=== PATIENT | female | born 1930 | race Caucasian/White ===

== ENCOUNTER 2017-06-18 22:03 | Inpatient (IN) | payer OTHER ==
[~2017-06-18] VITALS: Ht 177.8 cm; Wt 85.8 kg
[~2017-06-18 22:03] MED LIST: ALLOPURINOL100 PO; BACTRIM1 TAB PO; COR200 PO; COR6 PO; CORE25 PO; COU2 PO; COZ25 PO; COZ50 PO; CRANBERRY CAPS; CRANBERRY1 CAP PO; CRANBERRY1 POW; DIG125 PO; DIGOXIN0.125 MG PO; DYA PO; DYAZIDE; FOSAMAX70 MG PO; IMO2 PO; IMODIUM A-D2 M1 PO; L40 PO; L40I PO; LAC PO; LASIX40 MG PO; LOPERAMIDE2 MG PO; MOTRIN800 MG PO; NORVASC2.5 MG PO; OMEPRAZOLE40 M1 PO; PRO RENAL PO; PROZ20 PO; ROC1I IV; ROC25 PO; SYN88 PO; TRA50 PO; TRAZODONE50 M1 PO; TRAZODONE50 MG PO; TRE400 PO; TYLENOL ES; TYLENOL ES500 MG PO; VITAMIN B12 1541 TAB PO; VITB12I; XARELTO PO; ZOC20 PO; ZYL300 PO; [UNRECOGNIZED DRUG - OTHER]; [UNRECOGNIZED DRUG - OTHER] PO; [UNRECOGNIZED DRUG - OTHER] PO; [UNRECOGNIZED DRUG - OTHER] PO; levofloxacin PO
[2017-06-18 22:43] LABS: PLATELET COUNT 279 x10^3mcL (130-400); RED CELL DISTRIBUTION WIDTH 15.4 % (11.5-14.5)
[2017-06-18 22:49] LABS: CALCIUM 9.5 mg/dL (8.5-10.1); CARBON DIOXIDE 28.7 mmol/L (21-32); CHLORIDE SERUM 104 mmol/L (98-107); CREATININE SERUM 1.5 mg/dL (0.6-1.0); GLUCOSE SERUM 132 mg/dL (74-106); POTASSIUM SERUM 3.9 mmol/L (3.5-5.1); SODIUM SERUM 142 mmol/L (136-145)
[2017-06-18 22:54] LABS: ALBUMIN 3.6 g/dL (3.4-5.0); ALKALINE PHOSPHATASE 105 U/L (46-116); ALT/SGPT 12 U/L (14-59); AST/SGOT 15 U/L (15-37); TOTAL PROTEIN, SERUM 7.7 g/dL (6.4-8.2)
[2017-06-19] VITALS (8 sets, daily range): BP systolic 132–173; BP diastolic 70–94
[2017-06-19] MEDS ORDERED: ALLOPURINOL100 MG PO (00:31)
[2017-06-19] MEDS ORDERED: FLUOXETINE40 MG PO (00:31)
[2017-06-19] MEDS ORDERED: LEVOXYL0.088 MG PO (00:31)
[2017-06-19] MEDS ORDERED: LOSARTAN POTASS50 M1 PO (00:32)
[2017-06-19] MEDS ORDERED: ROC25 PO (00:32)
[2017-06-19] MEDS ORDERED: COREG12.5 MG PO (00:33)
[2017-06-19] MEDS ORDERED: XARELTO10 M1 PO (00:33)
[2017-06-19] MEDS ORDERED: LASIX40 MG PO (00:33)
[2017-06-19] MEDS ORDERED: NORVASC2.5 MG PO (00:34)
[2017-06-19] MEDS ORDERED: TRAZODONE50 M1 PO (00:34)
[2017-06-19] MEDS ORDERED: SIMVASTATIN20 M1 PO (00:34)
[2017-06-19] MEDS ORDERED: CRANBERRY200 MG PO (00:35)
[2017-06-19] MEDS ORDERED: [UNRECOGNIZED DRUG - OTHER] PO (00:35)
[2017-06-19] MEDS ORDERED: LOPERAMIDE HCL2 MG PO (00:35)
[2017-06-19] MEDS ORDERED: FOLBIC RF1 TAB PO (00:35)
[2017-06-19 02:35] LABS: CHOLESTEROL/HDL RATIO 3.2; PHOSPHOROUS 3.3 mg/dL (2.5-4.9)
[2017-06-19 02:44] LABS: T3 TOTAL 0.88 ng/mL
[2017-06-19 02:46] LABS: FREE T4 1.5 ng/dL (0.76-1.46); FREE THYROXINE INDEX 4.1 ug/dL (1.4-4.5); T4(THYROXINE) 10.9 ug/dL (4.7-13.3)
[2017-06-19 06:34] LABS: CALCIUM 9.3 mg/dL (8.5-10.1); CARBON DIOXIDE 30.2 mmol/L (21-32); CHLORIDE SERUM 106 mmol/L (98-107); CREATININE SERUM 1.5 mg/dL (0.6-1.0); GLUCOSE SERUM 105 mg/dL (74-106); SODIUM SERUM 145 mmol/L (136-145)
[2017-06-19 07:06] LABS: BASOPHIL % 0.4 % (0-2); PLATELET COUNT 249 x10^3mcL (130-400)
[2017-06-19 07:07] LABS: RED CELL DISTRIBUTION WIDTH 15.6 % (11.5-14.5)
[2017-06-19 14:14] LABS: UA SPECIFIC GRAVITY 1.015 (1.005-1.035); microscopic required? YES; urine erythrocyte 1+ (NEGATIVE)
[2017-06-19 14:21] LABS: AMPHETAMINE QUAL UR NONE DETECTED (NEG <=1000)
[2017-06-20] VITALS (7 sets, daily range): BP systolic 139–165; BP diastolic 74–98
[2017-06-20 06:14] LABS: BASOPHIL % 0.4 % (0-2); PLATELET COUNT 227 x10^3mcL (130-400)
[2017-06-20 06:40] LABS: RED CELL DISTRIBUTION WIDTH 15.8 % (11.5-14.5)
[2017-06-20 06:48] LABS: CALCIUM 8.8 mg/dL (8.5-10.1); CARBON DIOXIDE 29.1 mmol/L (21-32); CHLORIDE SERUM 107 mmol/L (98-107); CREATININE SERUM 1.4 mg/dL (0.6-1.0); GLUCOSE SERUM 82 mg/dL (74-106); POTASSIUM SERUM 3.4 mmol/L (3.5-5.1); SODIUM SERUM 144 mmol/L (136-145)
[2017-06-21 05:15] VITALS: BP 145/84
[2017-06-21 06:02] LABS: CALCIUM 8.7 mg/dL (8.5-10.1); CARBON DIOXIDE 29.3 mmol/L (21-32); CHLORIDE SERUM 108 mmol/L (98-107); CREATININE SERUM 1.5 mg/dL (0.6-1.0); GLUCOSE SERUM 88 mg/dL (74-106); POTASSIUM SERUM 3.8 mmol/L (3.5-5.1); SODIUM SERUM 143 mmol/L (136-145)
[2017-06-21 06:21] LABS: BASOPHIL % 0.6 % (0-2); PLATELET COUNT 225 x10^3mcL (130-400)
[2017-06-21 06:24] LABS: RED CELL DISTRIBUTION WIDTH 15.7 % (11.5-14.5)
[2017-06-21 09:38] VITALS: BP 135/60
[2017-06-21] MEDS ORDERED: LEVAQUIN750 MG PO (10:05)
[2017-06-21] MEDS ORDERED: LAC PO (10:07)
[2017-06-21] MEDS ORDERED: ZOF4 PO (10:10)
[2017-06-21 13:39] VITALS: BP 120/75
[2017-06-21] MEDS ORDERED: [UNRECOGNIZED DRUG - OTHER] IV ×2 (15:49→16:18)
== END 2017-06-21 17:11 | DRG 640 ==
LOC: ED 22:03 → DU 06-19 00:19
PROVIDERS: Emergency Medicine; Family Medicine; ADMIT Family Medicine Sports Medicine
DX: E86.0 Dehydration (principal); N17.0 Acute kidney failure with tubular necrosis; I50.43 Acute on chronic combined systolic (congestive) and diastolic (congestive) heart failure; N39.0 Urinary tract infection, site not specified; D68.69 Other thrombophilia; E11.51 Type 2 diabetes mellitus with diabetic peripheral angiopathy without gangrene; I11.0 Hypertensive heart disease with heart failure; E89.0 Postprocedural hypothyroidism; F32.9 Major depressive disorder, single episode, unspecified; I48.91 Unspecified atrial fibrillation; R31.9 Hematuria, unspecified; E66.3 Overweight; E78.5 Hyperlipidemia, unspecified; Z95.0 Presence of cardiac pacemaker; Z68.29 Body mass index [BMI] 29.0-29.9, adult; Z79.01 Long term (current) use of anticoagulants; Z85.820 Personal history of malignant melanoma of skin; Z85.850 Personal history of malignant neoplasm of thyroid; Z95.5 Presence of coronary angioplasty implant and graft
CPT/HCPCS: 83880; 84439; 90658; 97110-GP; 97116-GP; 97530-GP; J1956; J2543; J2550; J7030; Q0092

== ENCOUNTER 2017-07-28 22:07 | Inpatient (IN) | payer OTHER ==
[~2017-07-28] VITALS: Ht 177.8 cm; Wt 90.5 kg
[~2017-07-28 22:07] MED LIST changes: +ALLOPURINOL100 MG PO; +COREG12.5 MG PO; +CRANBERRY200 MG PO; +FLUOXETINE40 MG PO; +FOLBIC RF1 TAB PO; +LEVAQUIN750 MG PO; +LEVOXYL0.088 MG PO; +LOPERAMIDE HCL2 MG PO; +LOSARTAN POTASS50 M1 PO; +SIMVASTATIN20 M1 PO; +XARELTO10 M1 PO; +ZOF4 PO; +[UNRECOGNIZED DRUG - OTHER] IV
[2017-07-29] VITALS (7 sets, daily range): BP systolic 121–159; BP diastolic 64–83
[2017-07-29 00:44] LABS: PHOSPHOROUS 3.3 mg/dL (2.5-4.9)
[2017-07-29 00:56] LABS: T3 TOTAL 1.01 ng/mL
[2017-07-29 01:24] LABS: FREE T4 1.51 ng/dL (0.76-1.46); FREE THYROXINE INDEX 3.9 ug/dL (1.4-4.5); T4(THYROXINE) 11.2 ug/dL (4.7-13.3)
[2017-07-29 01:49] LABS: ALKALINE PHOSPHATASE 258 U/L (46-116); ALT/SGPT 41 U/L (14-59); AST/SGOT 22 U/L (15-37); BILIRUBIN TOTAL 1.01 mg/dL (0.20-1.00); CALCIUM 9.7 mg/dL (8.5-10.1); CARBON DIOXIDE 29.9 mmol/L (21-32); CHLORIDE SERUM 101 mmol/L (98-107); CREATININE SERUM 1.6 mg/dL (0.6-1.0); GLUCOSE SERUM 113 mg/dL (74-106); POTASSIUM SERUM 3.5 mmol/L (3.5-5.1); SODIUM SERUM 139 mmol/L (136-145); TOTAL PROTEIN, SERUM 7.6 g/dL (6.4-8.2)
[2017-07-29 01:59] LABS: ALBUMIN 3.2 g/dL (3.4-5.0)
[2017-07-29 21:07] LABS: BASOPHIL % 0.7 % (0-2); PLATELET COUNT 300 x10^3mcL (130-400)
[2017-07-29 21:09] LABS: RED CELL DISTRIBUTION WIDTH 16.4 % (11.5-14.5)
[2017-07-29 21:11] LABS: CALCIUM 9.2 mg/dL (8.5-10.1); CARBON DIOXIDE 30.3 mmol/L (21-32); CHLORIDE SERUM 104 mmol/L (98-107); CREATININE SERUM 1.6 mg/dL (0.6-1.0); GLUCOSE SERUM 105 mg/dL (74-106); POTASSIUM SERUM 3.7 mmol/L (3.5-5.1); SODIUM SERUM 142 mmol/L (136-145)
[2017-07-30 05:22] VITALS: BP 146/79
[2017-07-30 06:39] LABS: BASOPHIL % 0.5 % (0-2); PLATELET COUNT 296 x10^3mcL (130-400)
[2017-07-30 06:41] LABS: CALCIUM 9.2 mg/dL (8.5-10.1); CARBON DIOXIDE 31.6 mmol/L (21-32); CHLORIDE SERUM 105 mmol/L (98-107); CREATININE SERUM 1.6 mg/dL (0.6-1.0); GLUCOSE SERUM 97 mg/dL (74-106); POTASSIUM SERUM 3.5 mmol/L (3.5-5.1); SODIUM SERUM 142 mmol/L (136-145)
[2017-07-30 07:01] LABS: RED CELL DISTRIBUTION WIDTH 15.9 % (11.5-14.5)
[2017-07-30 09:14] VITALS: BP 146/68
[2017-07-30] MEDS ORDERED: LAC PO (11:16)
[2017-07-30] MEDS ORDERED: CLEOCIN HCL300 MG PO (11:16)
[2017-07-30] MEDS ORDERED: LEVAQUIN750 MG PO (11:16)
[2017-07-30 12:42] VITALS: BP 146/68
[2017-07-30 13:46] VITALS: BP 149/81
== END 2017-07-30 14:18 | disposition home health service (06) | DRG 913 ==
LOC: ED 22:07 → DU 23:56
PROVIDERS: ADMIT Family Medicine
DX: S09.90XA Unspecified injury of head, initial encounter (principal); N17.0 Acute kidney failure with tubular necrosis; D68.69 Other thrombophilia; E44.1 Mild protein-calorie malnutrition; E11.51 Type 2 diabetes mellitus with diabetic peripheral angiopathy without gangrene; E89.0 Postprocedural hypothyroidism; W18.39XA Other fall on same level, initial encounter; Z91.81 History of falling; Y93.89 Activity, other specified; Y92.012 Bathroom of single-family (private) house as the place of occurrence of the external cause; Z79.01 Long term (current) use of anticoagulants; Z85.820 Personal history of malignant melanoma of skin; Z85.850 Personal history of malignant neoplasm of thyroid
CPT/HCPCS: 83880; 84439; 94150; 97110-GP; 97116-GP; 97530-GP; J2543; J7030; Q0092

== ENCOUNTER 2017-12-30 12:02 | Emergency (ER) | payer OTHER ==
[~2017-12-30] VITALS: Ht 177.8 cm; Wt 86.6 kg
[~2017-12-30 12:02] MED LIST changes: +CLEOCIN HCL300 MG PO
[2017-12-30 12:08] VITALS: Ht 177.8 cm; Wt 86.6 kg
[2017-12-30 16:40] VITALS: BP 146/85
== END 2017-12-30 16:40 | disposition home or self-care (01) ==
LOC: ED 12:02
DX: S09.90XA Unspecified injury of head, initial encounter (principal); I10 Essential (primary) hypertension; E11.9 Type 2 diabetes mellitus without complications; I48.91 Unspecified atrial fibrillation; Z88.8 Allergy status to other drugs, medicaments and biological substances; W01.0XXA Fall on same level from slipping, tripping and stumbling without subsequent striking against object, initial encounter; Y93.89 Activity, other specified; Y92.89 Other specified places as the place of occurrence of the external cause; Y99.8 Other external cause status

== ENCOUNTER 2018-02-01 13:11 | Emergency (ER) | payer OTHER ==
[~2018-02-01] VITALS: Ht 175.3 cm; Wt 87.1 kg
[2018-02-01 13:25] VITALS: Ht 175.3 cm; Wt 87.1 kg
[2018-02-01 15:53] LABS: BASOPHIL % 0.2 % (0-2); PLATELET COUNT 211 x10^3mcL (130-400)
[2018-02-01 15:55] LABS: RED CELL DISTRIBUTION WIDTH 15.7 % (11.5-14.5)
[2018-02-01 16:04] LABS: CALCIUM 9.1 mg/dL (8.5-10.1); CARBON DIOXIDE 32.2 mmol/L (21-32); CHLORIDE SERUM 106 mmol/L (98-107); CREATININE SERUM 1.3 mg/dL (0.6-1.0); GLUCOSE SERUM 102 mg/dL (74-106); POTASSIUM SERUM 3.4 mmol/L (3.5-5.1); SODIUM SERUM 133 mmol/L (136-145)
[2018-02-01 16:08] LABS: ALKALINE PHOSPHATASE 116 U/L (46-116); ALT/SGPT 16 U/L (14-59); AST/SGOT 17 U/L (15-37); BILIRUBIN TOTAL 0.81 mg/dL (0.20-1.00); TOTAL PROTEIN, SERUM 6.5 g/dL (6.4-8.2)
[2018-02-01 16:10] LABS: ALBUMIN 3.1 g/dL (3.4-5.0)
[2018-02-01 18:03] LABS: UA SPECIFIC GRAVITY 1.015 (1.005-1.035); microscopic required? YES; urine erythrocyte 1+ (NEGATIVE)
[2018-02-01 18:23] VITALS: BP 163/85
== END 2018-02-01 18:23 | disposition home or self-care (01) ==
LOC: ED 13:11
PROVIDERS: Emergency Medicine
DX: S70.02XA Contusion of left hip, initial encounter (principal); I10 Essential (primary) hypertension; E11.9 Type 2 diabetes mellitus without complications; I49.9 Cardiac arrhythmia, unspecified; I48.91 Unspecified atrial fibrillation; Z95.0 Presence of cardiac pacemaker; Z88.8 Allergy status to other drugs, medicaments and biological substances; W18.39XA Other fall on same level, initial encounter; Y93.89 Activity, other specified; Y92.89 Other specified places as the place of occurrence of the external cause; Y99.8 Other external cause status
CPT/HCPCS: J3010; J7030

== ENCOUNTER 2018-09-27 23:27 | Observation (INO) | payer OTHER ==
[~2018-09-27] VITALS: Ht 177.8 cm; Wt 90.7 kg
[2018-09-28 00:05] LABS: BASOPHIL % 0.9 % (0-2); PLATELET COUNT 275 x10^3mcL (130-400)
[2018-09-28 00:12] LABS: CALCIUM 8.9 mg/dL (8.5-10.1); CARBON DIOXIDE 30.7 mmol/L (21-32); CHLORIDE SERUM 102 mmol/L (98-107); CREATININE SERUM 1.5 mg/dL (0.6-1.0); GLUCOSE SERUM 91 mg/dL (74-106); POTASSIUM SERUM 3.6 mmol/L (3.5-5.1); SODIUM SERUM 137 mmol/L (136-145)
[2018-09-28 00:13] LABS: RED CELL DISTRIBUTION WIDTH 15.2 % (11.5-14.5)
[2018-09-28 00:17] LABS: ALBUMIN 2.7 g/dL (3.4-5.0); ALKALINE PHOSPHATASE 222 U/L (46-116); ALT/SGPT 51 U/L (14-59); AST/SGOT 23 U/L (15-37); BILIRUBIN TOTAL 1.2 mg/dL (0.20-1.00); TOTAL PROTEIN, SERUM 6.6 g/dL (6.4-8.2)
[2018-09-28] MEDS ORDERED: LOPERAMIDE HCL2 MG PO (01:05)
[2018-09-28] MEDS ORDERED: CARVEDILOL12.5 M1 PO (01:06)
[2018-09-28] MEDS ORDERED: MUPIROCIN2% (01:07)
[2018-09-28 01:52] VITALS: BP 143/75
[2018-09-28 05:57] VITALS: BP 166/76
[2018-09-28 06:14] LABS: BASOPHIL % 0.7 % (0-2); PLATELET COUNT 223 x10^3mcL (130-400)
[2018-09-28 06:23] LABS: ALKALINE PHOSPHATASE 186 U/L (46-116); ALT/SGPT 42 U/L (14-59); AST/SGOT 20 U/L (15-37); CALCIUM 8.4 mg/dL (8.5-10.1); CARBON DIOXIDE 30.5 mmol/L (21-32); CHLORIDE SERUM 105 mmol/L (98-107); CREATININE SERUM 1.4 mg/dL (0.6-1.0); GLUCOSE SERUM 90 mg/dL (74-106); PHOSPHOROUS 2.8 mg/dL (2.5-4.9); POTASSIUM SERUM 3.5 mmol/L (3.5-5.1); RED CELL DISTRIBUTION WIDTH 14.8 % (11.5-14.5); SODIUM SERUM 142 mmol/L (136-145)
[2018-09-28 06:50] LABS: ALBUMIN 2.3 g/dL (3.4-5.0)
[2018-09-28 09:26] VITALS: BP 131/71
[2018-09-28 13:13] VITALS: BP 103/59
[2018-09-28 17:19] VITALS: Ht 177.8 cm; Wt 90.7 kg
[2018-09-28 17:27] VITALS: BP 138/60
[2018-09-28 20:58] VITALS: BP 139/58
[2018-09-29 05:24] VITALS: BP 124/78
[2018-09-29 08:46] VITALS: BP 147/79
[2018-09-29 12:20] VITALS: BP 142/69
[2018-09-29 16:29] VITALS: BP 136/65
[2018-09-29 21:05] VITALS: BP 167/70
[2018-09-30 05:33] VITALS: BP 143/65
[2018-09-30 06:46] LABS: BASOPHIL % 0.6 % (0-2); PLATELET COUNT 233 x10^3mcL (130-400)
[2018-09-30 07:17] LABS: RED CELL DISTRIBUTION WIDTH 15.4 % (11.5-14.5)
[2018-09-30 07:27] LABS: CARBON DIOXIDE 31.3 mmol/L (21-32); CHLORIDE SERUM 109 mmol/L (98-107); CREATININE SERUM 1.3 mg/dL (0.6-1.0); GLUCOSE SERUM 91 mg/dL (74-106); SODIUM SERUM 147 mmol/L (136-145)
[2018-09-30 09:03] VITALS: BP 105/55
[2018-09-30 12:12] VITALS: BP 123/71
[2018-09-30 13:35] VITALS: BP 105/55
== END 2018-09-30 16:08 | disposition home or self-care (01) | DRG 379 ==
LOC: ED 23:27 → EDBEDREQTM 09-28 01:17 → DU 09-28 01:17 → EDBEDREQ 09-28 01:17 → DU 09-28 01:17
PROVIDERS: Emergency Medicine; Internal Medicine; Internal Medicine Pulmonary Disease; ADMIT Internal Medicine Pulmonary Disease
PROC: 0DJD8ZZ Inspection of Lower Intestinal Tract, Via Natural or Artificial Opening Endoscopic (ICD-10-PCS; principal; 2018-09-30 08:00)
DX: K57.33 Diverticulitis of large intestine without perforation or abscess with bleeding (principal); K57.31 Diverticulosis of large intestine without perforation or abscess with bleeding; I48.2 Chronic atrial fibrillation; I13.10 Hypertensive heart and chronic kidney disease without heart failure, with stage 1 through stage 4 chronic kidney disease, or unspecified chronic kidney disease; N18.2 Chronic kidney disease, stage 2 (mild); I25.10 Atherosclerotic heart disease of native coronary artery without angina pectoris; R73.03 Prediabetes; E03.9 Hypothyroidism, unspecified; Z95.0 Presence of cardiac pacemaker; Z95.5 Presence of coronary angioplasty implant and graft; Z79.82 Long term (current) use of aspirin
CPT/HCPCS: 45378; G0378; J1200; J1610; J1956; J2250; J2310; J3010; J3490; J7120

== ENCOUNTER 2019-04-30 14:10 | Inpatient (IN) | payer OTHER ==
[~2019-04-30] VITALS: Ht 177.8 cm; Wt 81.6 kg
[~2019-04-30 14:10] MED LIST changes: +CARVEDILOL12.5 M1 PO; +MUPIROCIN2%
[2019-04-30 14:29] VITALS: Ht 177.8 cm; Wt 81.6 kg
[2019-04-30 15:00] LABS: PLATELET COUNT 303 x10^3mcL (130-400)
[2019-04-30 15:10] LABS: RED CELL DISTRIBUTION WIDTH 15.3 % (11.5-14.5)
[2019-04-30 15:11] LABS: CALCIUM 9.8 mg/dL (8.5-10.1); CARBON DIOXIDE 25.9 mmol/L (21-32); CHLORIDE SERUM 104 mmol/L (98-107); CREATININE SERUM 1.9 mg/dL (0.6-1.0); GLUCOSE SERUM 175 mg/dL (74-106); POTASSIUM SERUM 3.9 mmol/L (3.5-5.1); SODIUM SERUM 143 mmol/L (136-145)
[2019-04-30 15:17] LABS: ALKALINE PHOSPHATASE 305 U/L (46-116); ALT/SGPT 163 U/L (14-59); AST/SGOT 315 U/L (15-37); BILIRUBIN TOTAL 4.56 mg/dL (0.20-1.00); TOTAL PROTEIN, SERUM 6.8 g/dL (6.4-8.2)
[2019-04-30 15:18] LABS: ALBUMIN 2.9 g/dL (3.4-5.0)
[2019-04-30 15:21] LABS: BAND NEUTROPHIL 8 % (0-10); BASOPHIL 0 % (0-2); MONOCYTE 4 % (0-7); SEGMENTED NEUTROPHILS 86 % (37-75)
[2019-04-30 15:22] LABS: rbc morphology (normal/abnorm) NORMAL (NORMAL)
[2019-04-30 18:22] VITALS: BP 161/79
[2019-04-30 20:34] VITALS: BP 142/66
[2019-05-01 05:54] VITALS: BP 152/72
[2019-05-01 07:03] LABS: ALKALINE PHOSPHATASE 254 U/L (46-116); ALT/SGPT 136 U/L (14-59); AST/SGOT 163 U/L (15-37); BILIRUBIN TOTAL 5.2 mg/dL (0.20-1.00); CALCIUM 9.2 mg/dL (8.5-10.1); CARBON DIOXIDE 26.8 mmol/L (21-32); CHLORIDE SERUM 103 mmol/L (98-107); CREATININE SERUM 1.8 mg/dL (0.6-1.0); GLUCOSE SERUM 116 mg/dL (74-106); POTASSIUM SERUM 3.8 mmol/L (3.5-5.1); SODIUM SERUM 141 mmol/L (136-145); TOTAL PROTEIN, SERUM 6.4 g/dL (6.4-8.2)
[2019-05-01 07:04] LABS: ALBUMIN 2.6 g/dL (3.4-5.0)
[2019-05-01 07:20] LABS: PLATELET COUNT 241 x10^3mcL (130-400)
[2019-05-01 08:05] LABS: RED CELL DISTRIBUTION WIDTH 15.5 % (11.5-14.5)
[2019-05-01 08:47] VITALS: BP 154/87
[2019-05-01 11:07] LABS: BAND NEUTROPHIL 1 % (0-10); BASOPHIL 0 % (0-2); MONOCYTE 3 % (0-7); SEGMENTED NEUTROPHILS 92 % (37-75)
[2019-05-01 11:09] LABS: PLATELET MORPHOLOGY PLATELETS DECREASED; rbc morphology (normal/abnorm) ABNORMAL (NORMAL)
[2019-05-01 13:15] VITALS: BP 141/77
[2019-05-01 17:34] VITALS: BP 150/78
[2019-05-01 21:03] VITALS: BP 157/82
[2019-05-02 05:37] VITALS: BP 140/86
[2019-05-02 07:33] LABS: BASOPHIL % 0.3 % (0-2); PLATELET COUNT 218 x10^3mcL (130-400)
[2019-05-02 07:56] LABS: ALKALINE PHOSPHATASE 188 U/L (46-116); ALT/SGPT 84 U/L (14-59); AST/SGOT 59 U/L (15-37); CALCIUM 8.5 mg/dL (8.5-10.1); CARBON DIOXIDE 28.4 mmol/L (21-32); CHLORIDE SERUM 103 mmol/L (98-107); CREATININE SERUM 1.4 mg/dL (0.6-1.0); GLUCOSE SERUM 80 mg/dL (74-106); POTASSIUM SERUM 3.3 mmol/L (3.5-5.1); SODIUM SERUM 141 mmol/L (136-145)
[2019-05-02 07:57] VITALS: BP 142/71
[2019-05-02 07:57] LABS: ALBUMIN 2.3 g/dL (3.4-5.0); TOTAL PROTEIN, SERUM 5.7 g/dL (6.4-8.2)
[2019-05-02 08:15] LABS: BILIRUBIN DIRECT 0.71 mg/dL (0.0-0.2)
[2019-05-02 08:16] LABS: ALBUMIN 2.3 g/dL (3.4-5.0); TOTAL PROTEIN, SERUM 5.4 g/dL (6.4-8.2)
[2019-05-02 08:19] LABS: RED CELL DISTRIBUTION WIDTH 14.9 % (11.5-14.5)
[2019-05-02 11:36] VITALS: BP 137/71
[2019-05-02 16:18] VITALS: BP 130/69
[2019-05-02 19:38] VITALS: BP 144/72
[2019-05-03 04:44] VITALS: BP 125/86
[2019-05-03 06:48] LABS: BASOPHIL % 0.3 % (0-2); PLATELET COUNT 214 x10^3mcL (130-400)
[2019-05-03 07:04] LABS: ALKALINE PHOSPHATASE 172 U/L (46-116); ALT/SGPT 45 U/L (14-59); AST/SGOT 23 U/L (15-37); BILIRUBIN TOTAL 0.79 mg/dL (0.20-1.00); CALCIUM 8.2 mg/dL (8.5-10.1); CARBON DIOXIDE 29.4 mmol/L (21-32); CHLORIDE SERUM 103 mmol/L (98-107); CREATININE SERUM 1.3 mg/dL (0.6-1.0); GLUCOSE SERUM 84 mg/dL (74-106); POTASSIUM SERUM 3.6 mmol/L (3.5-5.1); SODIUM SERUM 142 mmol/L (136-145)
[2019-05-03 07:06] LABS: ALBUMIN 2.2 g/dL (3.4-5.0); TOTAL PROTEIN, SERUM 5.7 g/dL (6.4-8.2)
[2019-05-03 08:33] VITALS: BP 159/76
[2019-05-03] MEDS ORDERED: BACTRIM1 TAB PO (09:15)
[2019-05-03] MEDS ORDERED: VANCOMYCIN1 GM/2001 IV (12:00)
[2019-05-03 16:31] VITALS: BP 127/67
[2019-05-03 16:43] VITALS: BP 159/76
== END 2019-05-03 17:45 | DRG 444 ==
LOC: ED 14:10 → MU 16:39
PROVIDERS: Emergency Medicine; Internal Medicine; Internal Medicine Nephrology; Specialist; ADMIT Internal Medicine Pulmonary Disease
PROC: 0FC98ZZ Extirpation of Matter from Common Bile Duct, Via Natural or Artificial Opening Endoscopic (ICD-10-PCS; principal; 2019-05-01 11:30)
PROC: 0F768ZZ Dilation of Left Hepatic Duct, Via Natural or Artificial Opening Endoscopic (ICD-10-PCS; 2019-05-01 11:30)
DX: K80.30 Calculus of bile duct with cholangitis, unspecified, without obstruction (principal); K29.71 Gastritis, unspecified, with bleeding; G93.41 Metabolic encephalopathy; R78.81 Bacteremia; I13.0 Hypertensive heart and chronic kidney disease with heart failure and stage 1 through stage 4 chronic kidney disease, or unspecified chronic kidney disease; N17.9 Acute kidney failure, unspecified; B95.2 Enterococcus as the cause of diseases classified elsewhere; E86.1 Hypovolemia; K29.80 Duodenitis without bleeding; K44.9 Diaphragmatic hernia without obstruction or gangrene; I48.2 Chronic atrial fibrillation; I50.9 Heart failure, unspecified; N18.3 Chronic kidney disease, stage 3 (moderate); F03.90 Unspecified dementia, unspecified severity, without behavioral disturbance, psychotic disturbance, mood disturbance, and anxiety; E03.9 Hypothyroidism, unspecified; E11.22 Type 2 diabetes mellitus with diabetic chronic kidney disease; Z79.01 Long term (current) use of anticoagulants; Z68.27 Body mass index [BMI] 27.0-27.9, adult; Z80.1 Family history of malignant neoplasm of trachea, bronchus and lung; Z82.49 Family history of ischemic heart disease and other diseases of the circulatory system; Z95.0 Presence of cardiac pacemaker; Z95.5 Presence of coronary angioplasty implant and graft
CPT/HCPCS: 43262; 97110-GP; 97116-GP; 97530-GP; C1726; C1769; G0378; J0696; J1610; J1644; J2405; J2704; J3370; J3480; J3490; J7060; J7120; Q0092; Q9967

== ENCOUNTER 2020-01-07 16:19 | Emergency (ER) | payer OTHER ==
[~2020-01-07] VITALS: Ht 175.3 cm; Wt 81.6 kg
[~2020-01-07 16:19] MED LIST changes: +VANCOMYCIN1 GM/2001 IV
[2020-01-07 16:20] VITALS: Ht 175.3 cm; Wt 81.6 kg
[2020-01-07 17:08] LABS: CALCIUM 9.7 mg/dL (8.5-10.1); CARBON DIOXIDE 28.9 mmol/L (21-32); CHLORIDE SERUM 105 mmol/L (98-107); CREATININE SERUM 1.8 mg/dL (0.6-1.0); GLUCOSE SERUM 113 mg/dL (74-106); POTASSIUM SERUM 4.2 mmol/L (3.5-5.1); SODIUM SERUM 142 mmol/L (136-145)
[2020-01-07 17:15] LABS: BASOPHIL % 0.4 % (0-2); PLATELET COUNT 315 x10^3mcL (130-400); RED CELL DISTRIBUTION WIDTH 15.6 % (11.5-14.5)
[2020-01-07 19:43] VITALS: BP 166/94
== END 2020-01-07 19:43 | disposition home or self-care (01) ==
LOC: ED 16:19
PROVIDERS: Emergency Medicine
DX: S01.81XA Laceration without foreign body of other part of head, initial encounter (principal); I10 Essential (primary) hypertension; E11.9 Type 2 diabetes mellitus without complications; I48.91 Unspecified atrial fibrillation; G89.29 Other chronic pain; M79.605 Pain in left leg; Z88.8 Allergy status to other drugs, medicaments and biological substances; W01.0XXA Fall on same level from slipping, tripping and stumbling without subsequent striking against object, initial encounter; Y93.89 Activity, other specified; Y92.89 Other specified places as the place of occurrence of the external cause; Y99.8 Other external cause status
CPT/HCPCS: 36415; J2001; Q0092